=== PATIENT | female | born 1995 | race Two or more races ===

== ENCOUNTER 2019-01-27 19:39 | Emergency (ER) | payer SELFPAY ==
[~2019-01-27] VITALS: Ht 152.4 cm; Wt 72.6 kg
[2019-01-27 23:56] VITALS: BP 109/59
[2019-01-28] MEDS ORDERED: ACETAMINOPHEN/CODEINE#3 (300/30mg) TAB PO ONE (02:00)
== END 2019-01-28 02:16 | disposition home or self-care (01) ==
LOC: ER 19:39
DX: R30.0 Dysuria (principal); R10.30 Lower abdominal pain, unspecified